=== PATIENT | female | born 1980 | race Caucasian/White ===

== ENCOUNTER 2020-05-20 10:29 | Outpatient (CLI) | payer BC, SELFPAY ==
[2020-05-21 17:31] LABS: COVID-19 RT-PCR UVMMC Result Negative (Negative)
== END 2020-05-20 10:49 ==
PROVIDERS: PCP Family Medicine; Visit Provider Family Medicine
DX: Z20.828 Contact with and (suspected) exposure to other viral communicable diseases (principal)
CPT/HCPCS: U0003

== ENCOUNTER 2020-06-28 02:03 | Outpatient (CLI) | payer BC, SELFPAY ==
[2020-06-28 15:20] LABS: Abs Immature Grans 0.01 10^3/uL (0.0-0.06); Absolute Basophil Count 0.03 10^3/uL (0.0-0.2); Absolute Eosinophil Count 0.03 10^3/uL (0.0-0.7); Absolute Lymphocyte Count 2.26 10^3/uL (1.2-3.4); Absolute Monocyte Count 0.49 10^3/uL (0.1-0.8); Absolute Neutrophil Count 2.53 10^3/uL (1.2-6.7); Basophils % 0.6; Eosinophils % 0.6; HCT 38.8 % (36.0-46.0); HGB 12.7 g/dL (11.2-15.7); Immature Grans % 0.2; Lymphocytes % 42.2; MCHC 32.7 % (32.0-36.0); MCV 94.6 fL (80-95); MPV 9.4 fL (8.0-11.0); Monocytes % 9.2; Neutrophils % 47.2; Nucleated RBC 0 %; Platelet Count 240 10^3/uL (130-400); RDW 13.2 % (11.7-14.6); RDW-SD 46.1 fL; WBC 5.35 10^3/uL (4.4-10.8)
[2020-06-28 17:27] LABS: ALT 23 U/L (14-59); AST 16 U/L (15-37); Alkaline Phosphatase 48 U/L (46-116); BUN 14 mg/dL (7-18); Bilirubin, Total 0.2 mg/dL (0.2-1.0); CREATININE 0.72 mg/dL (0.55-1.02); Calcium 9.3 mg/dL (8.5-10.1); Chloride 100 mmol/L (98-107); Glucose 80 mg/dL (74-106); Potassium 3.9 mmol/L (3.5-5.1); Sodium 135 mmol/L (136-145); Total Protein 7.6 g/dL (6.4-8.2)
== END 2020-06-28 02:23 ==
PROVIDERS: PCP Family Medicine; Visit Provider Surgery
DX: F41.9 Anxiety disorder, unspecified (principal); K62.5 Hemorrhage of anus and rectum; K64.9 Unspecified hemorrhoids; J45.909 Unspecified asthma, uncomplicated
CPT/HCPCS: 36415; 80053; 85025

== ENCOUNTER 2020-07-02 10:31 | Outpatient (REF) | payer BC, SELFPAY ==
--- NOTE | 2020-07-02 09:00 | PAPFT_PTH ---
PATIENT: Sandy Knight LOC: [facility] U#:[id number] AGE/SX: 40/F ROOM: RE07/02/[address]: Wendy Thomas MD, DC : 1980 BED: DIS: 07/02/2020 SPEC #: [id number] RECD: 07/02/20 13:00 STATUS: LAUREN GERMAIN #: [id number] JOCY: 07/02/20 09:[address]: Wendy Thomas [facility] Cytology RECD BY: Nohemi Franklin Tissues: 1 - CX/ENDOCX FOR PAP SMEARS Procedures: PAP THIN PREP/UVM Screening HPV DNA PROBE Comments: [id number]
== END 2020-07-02 10:51 ==
LOC: LBN 10:31
PROVIDERS: PCP Family Medicine; Visit Provider Family Medicine
DX: Z12.4 Encounter for screening for malignant neoplasm of cervix (principal); Z11.51 Encounter for screening for human papillomavirus (HPV)
CPT/HCPCS: 88142; 87624

== ENCOUNTER 2020-07-05 01:40 | Outpatient (CLI) | payer BC, SELFPAY ==
[2020-07-06 13:48] LABS: COVID-19 RT-PCR UVMMC Result Negative (Negative)
== END 2020-07-05 02:00 ==
PROVIDERS: PCP Family Medicine; Visit Provider Family Medicine
DX: Z11.52 Encounter for screening for COVID-19 (principal); Z01.818 Encounter for other preprocedural examination
CPT/HCPCS: U0003

== ENCOUNTER 2020-07-09 03:21 | Outpatient (CLI) | payer BC, SELFPAY ==
[2020-07-09] MEDS: Albuterol HFA 18 GM 200 PUFF INH IH (09:23)
--- NOTE | 2020-07-10 11:18 | W.PFT ---
Date of service: 07/09/20 Time of Service: 08:08 Pulmonary Function Test Result Interpretation Spirometry: Mild obstructive airways disease with significant bronchodilator response Lung Volumes: No evidence of restriction Diffusion Capacity: Normal Airway Pressure: Markedly elevated Impression Mild obstructive airways disease with significant bronchodilator response, this is associated with markedly elevated airways resistance Clinical Correlation therefore is recommended.
== END 2020-07-09 03:22 | disposition home or self-care (01) ==
LOC: RT 03:21
PROVIDERS: PCP Family Medicine; Visit Provider Family Medicine
DX: R06.09 Other forms of dyspnea (principal); R05 Cough; R06.2 Wheezing; J45.909 Unspecified asthma, uncomplicated
CPT/HCPCS: 94060; 94726; 94729

== ENCOUNTER 2020-09-13 03:01 | Outpatient (CLI) | payer BC, SELFPAY ==
[2020-09-16 14:06] LABS: Alternaria Tenuis IgE <0.35 kU/L; Aspergillus Fumigatus IgE <0.35 kU/L; Bermuda Grass IgE <0.35 kU/L; Cockroach IgE <0.35 kU/L; Cottonwood IgE <0.35 kU/L; D Farinae IgE <0.35 kU/L; D Pteronyssinus IgE <0.35 kU/L; Eastern Sycamore IgE <0.35 kU/L; Elm IgE <0.35 kU/L; Epicoccum purpurascens IgE <0.35 kU/L; Giant Ragweed IgE <0.35 kU/L; Oak IgE <0.35 kU/L; Penicillium chrysogenum IgE <0.35 kU/L; Red Sorrel IgE <0.35 kU/L; Rough Pigweed IgE <0.35 kU/L; Silver Birch IgE <0.35 kU/L; Stemphyllium IgE <0.35 kU/L; Walnut Tree IgE <0.35 kU/L
[2020-09-16 14:47] LABS: Cat Epithelium IgE <0.35 kU/L; Cladosporium IgE <0.35 kU/L; Cocklebur IgE <0.35 kU/L; Dog Dander IgE <0.35 kU/L; Lamb's Quarter IgE <0.35 kU/L; Short Ragweed IgE <0.35 kU/L; Timothy Grass IgE <0.35 kU/L; Wormwood IgE <0.35 kU/L
[2020-09-19 17:39] LABS: CLASS 0; Cedar Red IgE <0.10 kU/L (<0.35); Fusarium oxysporum/vasinfectum <0.35 kU/L (<0.35); Rhodotorula IgE <0.35 kU/L (<0.35)
== END 2020-09-13 03:02 | disposition home or self-care (01) ==
LOC: LBO 03:01
PROVIDERS: PCP Family Medicine; Visit Provider Physician Assistant
DX: J31.0 Chronic rhinitis (principal); J45.40 Moderate persistent asthma, uncomplicated; Z91.09 Other allergy status, other than to drugs and biological substances
CPT/HCPCS: 36415; 86003

== ENCOUNTER 2020-10-08 01:23 | Outpatient (CLI) | payer BC, SELFPAY ==
--- NOTE | 2020-10-08 06:30 | DI.RAD_ITS ---
Exam(s) XR CHEST 2V PA LATERAL EXAM: XR CHEST 2V PA LATERAL CLINICAL HISTORY: SOB with exercise,R06.02 TECHNIQUE: 2D digital imaging was performed. COMPARISON: No exams were available for comparison FINDINGS: MEDIASTINUM: Normal. HEART: Normal. PULMONARY VASCULATURE: Normal. LUNGS: Clear. PLEURAL SPACE: No pleural effusion or pneumothorax. BONE:Within normal limits for the patient's age. OTHER FINDINGS:Normal. IMPRESSION: No acute pulmonary findings. DATA REPOSITORY: RADIATION DOSE DELIVERED:
== END 2020-10-08 01:43 ==
PROVIDERS: PCP Family Medicine; Visit Provider Family Medicine
DX: R06.02 Shortness of breath (principal)
CPT/HCPCS: 71046

== ENCOUNTER 2021-08-22 01:37 | Outpatient (CLI) | payer BC, SELFPAY ==
[2021-08-22 14:45] LABS: Calculated LDL 127 mg/dL (<100); Cholesterol 241 mg/dL (<200); HDL Cholesterol 95 mg/dL (40-60); Triglyceride 99 mg/dL (<150)
== END 2021-08-22 01:38 | disposition home or self-care (01) ==
LOC: LBO 01:37
PROVIDERS: Nurse Practitioner; PCP Family Medicine; Visit Provider Family Medicine
DX: Z13.6 Encounter for screening for cardiovascular disorders (principal)
CPT/HCPCS: 36415; 80061

== ENCOUNTER 2021-09-12 00:51 | Outpatient (CLI) | payer BC, SELFPAY ==
--- NOTE | 2021-09-12 07:52 | DI.MAMMO_ITS ---
Exam(s) MAMMO SCREENING EXAM: MAMMO SCREENING CLINICAL HISTORY: screening,z12.39. TECHNIQUE: Bilateral full field digital CC and MLO mammographic images were obtained with 3D tomosyn thesis and utilizing computer aided detection (CAD). COMPARISON: This is a baseline mammogram on this 41-year-old patient. FINDINGS: There are no CAD designations. There are no new spiculated masses nor malignant appearing microcalcification groups. There is no significant architectural distortion nor skin thickening-retraction. IMPRESSION: No radiographic evidence of malignancy. BI-RADS Category 1 - Negative Breast Density - Category B - Scattered areas of fibroglandular density Breast density Category C or D implies that the patient has dense breast tissue. Dense breast tissue can make it harder to find cancer on a mammogram. Dense breast tissue is also associated with an incr eased risk of breast cancer. This information about the result of the mammogram report was provided to the patient to raise their awareness. Use this report when you speak with the patient about their risks for breast cancer, which includes their family history. At that time, you may recommend additional screening tests (Ultrasoun d or MRI) as these tests may add significant information. A negative radiographic report should not delay biopsy if a dominant or clinically suspicious mass is present. Up to ten percent of cancers are not identified on mammography. A negative report may reinforce clinical impression. Adenosis and dense breasts may obscure an underlying neoplasm. False positive reports average 6 to 10%. Patient will receive a letter notifying them of these results.
== END 2021-09-12 01:11 ==
PROVIDERS: PCP Family Medicine; Visit Provider Nurse Practitioner
DX: Z12.31 Encounter for screening mammogram for malignant neoplasm of breast (principal)
CPT/HCPCS: 77063; 77067

== ENCOUNTER 2022-03-02 18:17 | Outpatient (REF) | payer BC, SELFPAY ==
[2022-03-02 21:28] LABS: Bilirubin Color Interference (Negative); Blood Color Interference (Negative); Clarity Clear (Clear); Glucose Color Interference mg/dL (Negative); Ketones Color Interference mg/dL (Negative); Leukocyte Esterase Color Interference (Negative); Nitrite Color Interference (Negative); Urobilinogen Color Interference EU/dL (Up TO 0.2)
[2022-03-02 21:33] LABS: Bacteria Many HPF (Negative); C & S Indicated? Yes; Casts Negative LPF (Negative); Crystals Negative HPF (Negative); Epithelial Cells Few HPF (Negative); Mucus Negative (Negative); RBC >50 HPF (0-2); WBC >50 HPF (0-5)
== END 2022-03-02 18:18 | disposition home or self-care (01) ==
LOC: LBN 18:17
PROVIDERS: PCP Family Medicine; Visit Provider Physician Assistant
DX: R39.9 Unspecified symptoms and signs involving the genitourinary system (principal)
CPT/HCPCS: 81003; 81015; 87086

== ENCOUNTER 2022-08-31 13:46 | Outpatient (CLI) | payer BC, SELFPAY | END 2022-08-31 13:47 | disposition home or self-care (01) | PROVIDERS: PCP Family Medicine; Visit Provider Nurse Practitioner Family | DX: I49.9 Cardiac arrhythmia, unspecified (principal) | CPT/HCPCS: 93246 ==

== ENCOUNTER 2022-09-18 00:22 | Outpatient (CLI) | payer BC, SELFPAY ==
--- NOTE | 2022-09-18 07:50 | DI.MAMMO_ITS ---
Exam(s) MAMMO SCREENING EXAM: MAMMO SCREENING CLINICAL HISTORY: screening,z12.39 TECHNIQUE: Mammograms were interpreted according to the usual protocol including computer analysis w [employer] CAD system, tomosynthesis and C-view imaging. COMPARISON: 2021 FINDINGS: The breasts are composed of scattered fibroglandular densities, Breast Density category B. No suspicious masses or suspicious microcalcifications are seen. No skin thickening or abnormal axillary lymph nodes are seen. There has been no significant change from prior exams. IMPRESSION: BI-RADS Category 1, Negative mammogram Yearly screening mammography is recommended. Breast Density - Category B, scattered fibroglandular densities. A negative radiographic report should not delay biopsy if a dominant or clinically suspicious mass is present. Up to ten percent of cancers are not identified on mammography. A negative report may reinforce clinical impression. Adenosis and dense breasts may obscure an underlying neoplasm. False positive reports average 6 to 10%. Patient will receive a letter notifying them of these results.
== END 2022-09-18 00:42 ==
LOC: DI 00:22
PROVIDERS: PCP Family Medicine; Visit Provider Nurse Practitioner Family
DX: Z12.31 Encounter for screening mammogram for malignant neoplasm of breast (principal)
CPT/HCPCS: 77063; 77067

== ENCOUNTER 2022-09-21 07:04 | Outpatient (CLI) | payer BC, SELFPAY ==
--- NOTE | 2022-09-22 10:27 | CER_ITS ---
Date of service: 09/22/22 Time of Service: 10:27 Cardiac Event Recorder Referring Provider:: Stephanie Woods Indications:: Cardiac arrhythmia Cardiac Event Note: This is a 14-day cardiac event monitor ordered for an unspecified cardiac dysr hythmia Rhythm throughout was sinus with an average heart rate of 78. Minimum was 51, maximum 167 There were no ventricular dysrhythmias There were very rare isolated atrial premature beats there was no atrial fibrillation, no SVT, no high-grade AV block, no pauses greater than 3 seconds No patient symptoms were reported
== END 2022-09-21 07:05 | disposition home or self-care (01) ==
LOC: CARDOPNVT 07:04
PROVIDERS: PCP Family Medicine; Visit Provider Internal Medicine Cardiovascular Disease
DX: I49.8 Other specified cardiac arrhythmias (principal)

== ENCOUNTER → 2023-09-21 02:10 | Outpatient (CLI) | payer BC, SELFPAY ==
--- NOTE | 2023-09-21 08:03 | DI.MAMMO_ITS ---
Exam(s) MAMMO SCREENING EXAM: MAMMO SCREENING CLINICAL HISTORY: screening,z12.39 TECHNIQUE: Mammograms were interpreted according to the usual protocol including computer analysis w [employer] CAD system, tomosynthesis and C-view imaging. COMPARISON: 2021 and 2022 FINDINGS: The breasts are composed of scattered fibroglandular densities, Breast Density category B. No suspicious masses or suspicious microcalcifications are seen. No skin thickening or abnormal axillary lymph nodes are seen. There has been no significant change from prior exams. IMPRESSION: BI-RADS Category 1, Negative mammogram Yearly screening mammography is recommended. Breast Density - Category B, scattered fibroglandular densities. A negative radiographic report should not delay biopsy if a dominant or clinically suspicious mass is present. Up to ten percent of cancers are not identified on mammography. A negative report may reinforce clinical impression. Adenosis and dense breasts may obscure an underlying neoplasm. False positive reports average 6 to 10%. Patient will receive a letter notifying them of these results.
== END ==
PROVIDERS: PCP Family Medicine; Visit Provider Nurse Practitioner Family
DX: Z12.31 Encounter for screening mammogram for malignant neoplasm of breast (principal)
CPT/HCPCS: 77063; 77067

== ENCOUNTER 2024-10-03 17:53 | Outpatient (REF) | payer BC, SELFPAY ==
--- NOTE | 2024-10-03 13:45 | PAPFT_PTH ---
PATIENT: Sandy Knight LOC: [facility] U#:[id number] AGE/SX: 44/F ROOM: RE10/03/[address]: Wendy Thomas MD, DC : 1980 BED: DIS: 10/03/2024 SPEC #: [id number] RECD: 10/04/24 12:54 STATUS: LAUREN REQ #: [id number] JOCY: 10/03/24 13:[address]: Wendy Thomas DEPT: [facility] Cytology RECD BY: Nohemi Franklin Tissues: 1 - CX/ENDOCX FOR PAP SMEARS Procedures: PAP THIN PREP/UVM Screening HPV DNA PROBE Comments: [id number] (HPV 16 & 18/45)
== END 2024-10-03 17:54 | disposition home or self-care (01) ==
LOC: LBN 17:53
PROVIDERS: PCP Family Medicine; Visit Provider Family Medicine
DX: Z11.51 Encounter for screening for human papillomavirus (HPV) (principal); Z01.419 Encounter for gynecological examination (general) (routine) without abnormal findings
CPT/HCPCS: 88142; 87624

== ENCOUNTER 2024-11-07 01:11 | Outpatient (CLI) | payer BC, SELFPAY ==
--- NOTE | 2024-11-07 08:00 | DI.MAMMO_ITS ---
Exam(s) MAMMO SCREENING EXAM: MAMMO SCREENING CLINICAL HISTORY: screening,z12.39. TECHNIQUE: Bilateral full field digital CC and MLO mammographic images were obtained with 3D tomosyn thesis and utilizing computer aided detection (CAD). COMPARISON: Prior mammograms were reviewed. FINDINGS: There has been no significant change in the appearance and distribution of the fibroglandular tissue. There are no CAD designations. There are no new spiculated masses nor malignant appearing microcalcification groups. There is no significant architectural distortion nor skin thickening-retraction. IMPRESSION: No radiographic evidence of malignancy. BI-RADS Category 1 - Negative Breast Density - Category B - There are scattered areas of fibroglandular density. Breast density Category C or D implies that the patient has dense breast tissue. Dense breast tissue can make it harder to find cancer on a mammogram. Dense breast tissue is also associated with an incr eased risk of breast cancer. This information about the result of the mammogram report was provided to the patient to raise their awareness. Use this report when you speak with the patient about their risks for breast cancer, which includes their family history. At that time, you may recommend additional screening tests (Ultrasoun d or MRI) as these tests may add significant information. A negative radiographic report should not delay biopsy if a dominant or clinically suspicious mass is present. Up to ten percent of cancers are not identified on mammography. A negative report may reinforce clinical impression. Adenosis and dense breasts may obscure an underlying neoplasm. False positive reports average 6 to 10%. Patient will receive a letter notifying them of these results.
== END 2024-11-07 01:31 ==
LOC: DI 01:11
PROVIDERS: PCP Family Medicine; Visit Provider Family Medicine
DX: Z12.31 Encounter for screening mammogram for malignant neoplasm of breast (principal); R92.323 Mammographic fibroglandular density, bilateral breasts
CPT/HCPCS: 77063; 77067